=== PATIENT | male | born 1955 | race Caucasian/White ===

== ENCOUNTER 2023-07-04 21:18 | Emergency (ER) | payer MEDICARE, MEDICAID ==
[~2023-07-04] VITALS: Ht 172.7 cm; Wt 70.0 kg
[2023-07-04 21:26] VITALS: BP 126/77; PULSE 85; RESP 16; TEMP 97.7; O2SAT 95
== END 2023-07-05 00:01 | disposition left against medical advice (07) ==
LOC: ER 21:18
DX: R10.9 Unspecified abdominal pain (principal); Z53.21 Procedure and treatment not carried out due to patient leaving prior to being seen by health care provider
CPT/HCPCS: 93005; 99281